=== PATIENT | female | born 1955 | race Caucasian/White ===

== ENCOUNTER 2021-10-07 03:05 | Observation (INO) | payer OTHER ==
--- OUTSIDE RECORDS SUMMARY | 2021-10-07 03:09 | XMS REPORT | Continuity of Care Document ---
:1955 Author Organization [facility] t Address [address] [place] [address] Care Team Providers Name Role Phone UMM MONSON Primary Care Physician Unavailable MOHIT SANDOVAL Attending Clinician Unavailable LYUBOV GIFFORD Attending Clinician Unavailable MOHIT SANDOVAL M.D. Attending Clinician Unavailable SYDNEY SNOW Attending Clinician Unavailable WILIAN BUENROSTRO M.D. Attending Clinician Unavailable Wilian Buenrostro Sr Attending Clinician CALLY SWE[address] RD Attending Clinician Unavailable Payers Payer Name Policy Type Policy Number Effective Date Expiration Date Yesy scott [employer] [id number] 2000 00:00:00 [employer] CHOICE POS [id number] 2018 00:00:00 II Problems Condition Condition Condition Status Onset Resolution Last Treating Co mments Source Name Details Category Date Date Treatment Clinician Date MORBID MORBID Diagnosis Active 2018-07-02 Me moria OBESITY OBESITY 2-14 06:35:00 l Active 00:00: Car 03/25/[address] [place] [address] GERD GERD Diagnosis Active 2017-022018-01-08 Mem oria Active 03-06 07:32:00 l 01/04/2018 00:00: Milton damon [address] K21.9 K21.9 Diagnosis Active 2017-022018-01-04 Mem oria Active 0 15:27:00 l 11/26/2017 00:00: Milton damon [address] Localized Localized Problem Active [facility] primary primary Physici carpometac carpometac an s arpal arpal osteoarthr osteoarthr itis itis Trochanter Trochanter Problem Active U T ic ic Physici bursitis bursitis ans Headache Headache Problem Active [facility] Physici ans Vitamin D Vitamin D Problem Active [facility] deficiency deficiency Ph ysici ans Pre-operat Pre-operat Problem Active U [place] Phys[facility] cardiovasc cardiovasc an s ular ular examinatio examinatio n, n, valvular valvular heart heart disease disease massage operator longterm Problem Active [facility] current current Physici use of use of ans non-steroi non-steroi patricia patricia anti-infla anti-infla mmatories mmatories (NSAID) (NSAID) Muscle Muscle Problem Active [facility] spasm spasm Physici ans Neck pain Neck pain Problem Active [facility] Physici ans Drug Drug Problem Active [facility] therapy therapy Physici ans Generalize Generalize Problem Active U T d d Physici 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 Obstructiv Obstructiv Problem Active U T e sleep e sleep Physici apnea apnea ans syndrome syndrome Asthma in Asthma in Problem Active UT adult adult Physici without without ans complicati complicati on, on, unspecifie unspecifie d asthma d asthma severity, severity, unspecifie unspecifie d whether d whether persistent persistent Body mass Body mass Problem 2018-07-28 Memoria index index 14:31:41 l (BMI) (BMI) [place] 37.0-37.9, 37.0-37.9, adult adult 07/28/2018 [facility] Essential Essential Problem 2018-07-28 Memoria (primary) (primary) 14:31:41 l hypertensi hypertensi [facility] on on 07/28/2018 [facility] Unspecifie Unspecifi Problem 2018-07-28 Memoria d atrial ed atrial 14:31:41 l [facility] Hypothyroi Problem 2018-07-28 M emoria dism, Hypothyroi 14:31:41 l unspecifie dism, Milton n d unspecifie d 07/28/2018 [facility] Gastro-eso Gastro-es Problem 2018-07-28 Memoria phageal ophageal 14:31:41 l reflux reflux Car disease disease without without esophagiti esophagiti s s 07/28/2018 [facility] Morbid Morbid Problem 2018-07-28 Andre dilcia (severe) (severe) 14:31:41 l obesity obesity [place] due to due to excess excess calories calories 07/28/2018 [facility] Osteoarthr Osteoarthr Problem Active U T itis, itis, Physici localized, localized, an s ankle or ankle or foot foot History of Past Illness Condition Condition Condition Status Onset Resolution Last Treating Co mments Source Name Details Category Date Date Treatment Clinician Date Unspecifie Unspecifi Problem 2017-022018-07-28 2018-07-28 Memoria d chronic ed chronic 2-06 14:31:41 14:31:41 l gastritis gastritis 04:08: Herm matt without without 47 bleeding bleeding 01/14/2018 07/28/2018 [facility] Allergies, Adverse Reactions, Alerts Allergy Allergy Status Severity Reaction(s) Onset Inactive Treating Comm ents Source Name Type Date Date Clinician pentazoc DA [facility] [place] clarithr DA Active [facility] omycin [facility] Talwin Talwin Active Memoria Compound Compound l [place] Biaxin Biaxin Active Memoria l Car NO KNOWN Drug Active [facility] ALLERGIE Class ity of [facility] Biaxin Allergy Active UT TABS to drug Physici (finding ans ) Talwin Allergy Active UT SOLN to drug Physici (finding ans ) Social History Smoking Status Start Date Stop Date Source Social History [facility] Medications Ordered Filled Start Stop Current Ordering Indication Dosage Frequency Signature Comments Components Source Medication Medication Date Date Medication? Clinician (SIG) Name Name Lisinopril- Lisinopril- Yes M.A. 1 QD TAKE 1 UT hydroCHLORO hydroCHLORO 3-16 TABLET Physici thiazide thiazide 00:00: DAILY. ans 20-25 MG 20-25 MG 00 Oral Tablet Oral Tablet Meloxicam Meloxicam 2011-02 Yes MOHIT QD TAKE 1 UT 15 MG Oral 15 MG Oral 2-21 SANDOVAL TABLET BY Physici Tablet Tablet 00:00: M.D. MOUTH ans 00 EVERY DAY Levoxyl 112 Levoxyl 112 Yes M.A. U T MCG Oral MCG Oral Physici Tablet Tablet ans Singulair Singulair Yes M.A. TAKE UT 10 MG Oral 10 MG Oral TABLET P hysici Tablet Tablet BEDTIME ans ZyrTEC ZyrTEC Yes M.A. 1 TAKE 1 UT Allergy 10 Allergy 10 TABLET P hysici MG Oral MG Oral BEDTIME ans Tablet Tablet Heartburn Heartburn Yes M.A. 1 QD TAKE 1 UT Relief TABS Relief TABS TABLET Physici DAILY. ans predniSONE predniSONE Yes M.A. 1 QD TAKE 1 U T 5 MG Oral 5 MG Oral TABLET Phy sici Tablet Tablet DAILY. ans Nucala 100 Nucala 100 Yes M.A. INJECT U T MG MG MONTHLY Physici Subcutaneou Subcutaneou a ns s Solution s Solution Reconstitut Reconstitut ed ed Qvar AERS Qvar AERS Yes M.A. [facility] Physici ans Advair Advair Yes M.A. UT Diskus MISC Diskus MISC P hysici ans Omeprazole Omeprazole Yes M.A. UT 20 MG Oral 20 MG Oral Phy sici Capsule Capsule ans Delayed Delayed Release Release Vital Signs Vital Name Observation Time Observation Value Comments Source Systolic blood 2020-01-13 11:45:00 116 mm[Hg] Location: [facility] P hysicians pressure Position: Sitting Diastolic blood 2020-01-13 11:45:00 76 mm[Hg] Location: [facility] Physicians pressure Position: Sitting Weight 2020-01-13 11:45:00 214.125 [lb_av] [facility] Ph ysicians Body mass index 2020-01-13 11:45:00 37.93 kg/m2 [facility] Ph ysicians (BMI) [Ratio] Body temperature 2020-01-13 11:45:00 96.9 [degF] [facility] P hysicians Heart Rate 2020-01-13 11:45:00 80 /min [facility] Physi cians Procedures Procedure Date / Time Performed Performing Clinician Sourc e Cholecystectomy [facility] Hysterectomy [facility] Operation [facility] Tubal ligation [facility] Encounters Start End Encounter Admission Attending Care Care Encounter Source Date/Time Date/Time Type Type Clinicians Facility Department ID 2021-07-12 Outpatient LORI [facility] [id number] [place] 12:46:15 [facility] [id number] [place] [address] 2021-01-09 Outpatient LORI [facility] [id number] [place] 14:47:50 Critical access hospital 2020-06-16 Outpatient LORI [facility] [id number] [place] 04:02:30 Critical access hospital 2020-06-18 2020-06-18 Outpatient Genia GIFFORD [facility] [id number] Univers 13:50:00 11:23:50 LYUBOV [facility] 2020-06-16 2020-06-16 Outpatient [facility] [id number] Univers 13:55:00 13:55:00 [facility] 2020-05-26 2020-05-26 Outpatient Genia GIFFORD [facility] [id number] Univers 14:00:00 14:00:00 LYUBOV [facility] 2020-05-06 2020-05-06 Outpatient [facility] [id number] Univers 09:00:00 09:00:00 [facility] 2020-01-13 2020-01-13 AppointDESTINEE Pablo [facility]TP [id number] [place] 11:30:00 11:30:00 t; MOHIT SANDOVAL P hysici COURTNEY, M.D. ans M.D. 2019-12-20 2019-12-20 Outpatient Genia SNOW [facility] [id number] Univers 10:00:00 10:00:00 SYDNEY [facility] 2018-10-29 2018-10-29 AppointDESTINEE Pablo UTP [id number] [place] 10:30:00 10:30:00 t; MOHIT SANDOVAL P hysici COURTNEY, M.D. ans M.D. 2018-03-31 2018-03-31 Outpatient [facility] LILO [id number] [facility] 11:30:00 11:30:00 2018-03-31 2018-03-31 Appointmen DESTINEE BUENROSTRO UTP [id number] [place] 10:30:00 10:30:00 t; WILIAN BUENROSTRO M.D. Physici BRAD, M.D. ans 2018-03-03 2018-03-03 Appointmen DESTINEE BUENROSTRO UTP [id number] [place] 11:30:00 11:30:00 t; WILIAN BUENROSTRO M.D. Physici BRAD, M.D. ans 2018-01-27 2018-01-27 Appointmen BUENROSTRO, DESTINEE UTP [id number] [place] 10:30:00 10:30:00 t; WILIAN BUENROSTRO M.D. Physici BRAD, M.D. ans 2018-01-08 2018-01-08 [id number] Memoria 13:22:00 19:59:00 Outpatient [facility] 2018-01-08 2018-01-08 [facility] [id number] 07:22:00 13:59:00 Wilian Billings 2018-01-08 2018-01-08 Appointmen PORTER, UTP UTP [id number] [place] 09:45:00 09:45:00 t; WILIAN BUENROSTRO M.D. Physici BRAD, M.D. ans 2017-12-30 2017-12-30 Appointmen PORTER, DESTINEE UTP [id number] [place] 11:15:00 11:15:00 t; WILIAN BUENROSTRO M.D. Physici BRAD, M.D. ans 2017-12-04 2017-12-04 [facility]ly [facility] [id number] Memoria 13:00:00 13:00:00 Outpatient [facility] 2017-12-04 2017-12-04 [facility] [id number] 08:00:00 08:00:00 Wilian Manuelito 2017-11-25 2017-11-[facility] UTP [id number] [place] 10:30:00 10:30:00 t; CALLY Damon, Kelli [address]TRAN RD ans CALLY [address] 2017-11-18 2017-11-18 Appointmen PORTER, DESTINEE UTP [id number] [place] 09:30:00 09:30:00 t; WILIAN BUENROSTRO M.D. Physici BRAD, M.D. ans 2017-07-16 2017-07-16 Appointmen LORI, DESTINEE UTP [id number] [place] 14:30:00 14:30:00 t; MOHIT SANDOVAL P hysici COURTNEY, M.D. ans M.D. 2016-01-31 2016-01-31 Appointmen DESITNEE SANDOVAL [facility] [id number] [place] 12:00:00 12:00:00 t; MOHIT SANDOVAL P hysici COURTNEY, M.D. ans M.D. Results Test Description Test Time Test Comments Results Result Comments Source [QL] CMP W/EGFR 2020-01-13 00:00:00 Test Item Value Reference Range Interpretation Comme nts GLUCOSE; Normal (test code 92 mg/dl 65-99 N F asting reference interval = 1547-9) UREA NITROGEN (BUN) (test 18 mg/dl 7-25 N code = UREA NITROGEN (BUN)) CREATININE (test code = 0.67 mg/dl 0.50-0.99 N For patients >49 years of age, CREATININE) the reference l imitfor Creatinine is a pproximately 13% higher for peopleidentifie d as -Jina n. eGFR NON-AFR. FILIPINO 93 {ML/MIN/1.7} > OR = 60 N (test code = eGFR NON-AFR. FILIPINO) eGFR 108 {ML/MIN/1.7} > OR = 60 N (test code = eGFR ) BUN/CREATININE RATIO (test NOT APPLICABLE 07-31 code = BUN/CREATININE RATIO) SODIUM (test code = 143 mmol/L 135-146 N SODIUM) POTASSIUM (test code = 4.0 mmol/L 3.5-5.3 N POTASSIUM) CHLORIDE (test code = 106 mmol/L 98-110 N CHLORIDE) CARBON DIOXIDE (test code 30 mmol/L 20-32 N = CARBON DIOXIDE) CALCIUM (test code = 9.6 mg/dl 8.6-10.4 N CALCIUM) PROTEIN, TOTAL (test code 6.6 g/dl 6.1-8.1 N = PROTEIN, TOTAL) ALBUMIN (test code = 4.0 g/dl 3.6-5.1 N ALBUMIN) GLOBULIN (test code = 2.6 {G/DL CALC} 1.9-3.7 N GLOBULIN) ALBUMIN/GLOBULIN RATIO 1.5 {CALC} 1.0-2.5 N (test code = ALBUMIN/GLOBULIN RATIO) BILIRUBIN, TOTAL; Normal 0.5 mg/dl 0.2-1.2 N (test code = 14000-4) ALKALINE PHOSPHATASE (test 70 u/l 37-153 N code = ALKALINE PHOSPHATASE) AST; Normal (test code = 18 u/l 10-35 N 1916-6) ALT; Above High Threshold 33 u/l 6-29 (test code = 1742-6) [place] [facility][QL] CBC (INCLUDES DIFF/PLT)2020-01-13 00:00:00 Test Item Value Reference Range Interpretation Comments WHITE BLOOD CELL COUNT 9.3 {Thousand/u} 3.8-10.8 N (test code = WHITE BLOOD CELL COUNT) RED BLOOD CELL COUNT (test 4.46 {Million/uL} 3.80-5.10 N code = RED BLOOD CELL COUNT) HEMOGLOBIN; Normal (test 11.9 g/dl 11.7-15.5 N code = 57947-7) HEMATOCRIT; Normal (test 36.8 % 35.0-45.0 N code = 4544-3) MCV; Normal (test code = 82.5 fL 80.0-100.0 N 787-2) MCHC; Normal (test code = 32.3 g/dl 32.0-36.0 N 88420-8) RDW; Normal (test code = 13.7 % 11.0-15.0 N 788-0) PLATELET COUNT; Normal 399 {Thousand/u} 140-400 N (test code = 777-3) MPV; Normal (test code = 9.7 fL 7.5-12.5 N 79024-5) ABSOLUTE NEUTROPHILS (test 7310 {cells/uL} 2779-3181 N code = ABSOLUTE NEUTROPHILS) ABSOLUTE LYMPHOCYTES (test 1023 {cells/uL} 850-3900 N code = ABSOLUTE LYMPHOCYTES) ABSOLUTE MONOCYTES (test 809 {cells/uL} 200-950 N code = ABSOLUTE MONOCYTES) ABSOLUTE EOSINOPHILS (test 121 {cells/uL} 15-500 N code = ABSOLUTE EOSINOPHILS) ABSOLUTE BASOPHILS (test 37 {cells/uL} 0-200 N code = ABSOLUTE BASOPHILS) NEUTROPHILS (test code = 78.6 % N NEUTROPHILS) LYMPHOCYTES (test code = 11.0 % N LYMPHOCYTES) MONOCYTES; Normal (test 8.7 % N code = 72671-6) EOSINOPHILS; Normal (test 1.3 % N code = 16740-4) BASOPHILS; Normal (test 0.4 % N code = 42153-2) [facility][QL] T4, [id number] 00:00:00 Test Item Value Reference Range Interpretation Comments T4, FREE (test code = T4, FREE) 1.2 ng/dl 0.8-1.8 N [place] [facility][QL] TSH, 3RD [id number] 00:00:00 Test Item Value Reference Range Interpretation Comments TSH; Normal (test code = 2.16 {MIU/L} 0.40-4.50 N 31776-8) [facility][QLH] CBC (INCLUDES DIFF/PLT)2017-11-18 10:48:01 Test Item Value Reference Range Interpretation Comments WBC (test code = 6690-2) 8.2 {K/CMM} 3.7-10.4 RBC (test code = 789-8) 4.87 {M/CMM} 4.20-5.40 Hgb (test code = 718-7) 12.7 g/dl 12.0-16.0 Hct (test code = 64447-9) 38.2 % 36.0-48.0 MCV; Below Low Threshold (test 78.4 fL 80.0-98.0 code = 787-2) MCH; Below Low Threshold (test 26.1 pg 27.0-31.0 code = 785-6) MCHC (test code = 786-4) 33.3 g/dl 32.0-36.0 RDW (test code = 788-0) 14.2 % 11.5-14.5 Platelet (test code = 04906-5) 399 {K/CMM} 133-450 Mean Platelet Volume (test code 8.1 fL 7.4-10.4 = 12226-6) [facility][QL] [id number] 10:48:01 Test Item Value Reference Range Interpretation Comments Segmented Neutrophils; Above High 83.6 % 45.0-75.0 Threshold (test code = 56687-9) Monocytes (test code = 29514-3) 5.6 % 2.0-12.0 Lymphocytes; Below Low Threshold 9.0 % 20.0-40.0 (test code = 01070-1) Eosinophils (test code = 91847-9) 1.1 % 0.0-4.0 Basophils (test code = 706-2) 0.7 % 0.0-1.0 Segs-Bands # (test code = 6.9 {K/CMM} 1.5-8.1 42292-7) Lymphocytes #; Below Low 0.7 {K/CMM} 1.0-5.5 Threshold (test code = 29199-3) Monocytes # (test code = 19960-7) 0.5 {K/CMM} 0.0-0.8 Eosinophils # (test code = 0.1 {K/CMM} 0.0-0.5 29439-8) Basophils # (test code = 20813-1) 0.1 {K/CMM} 0.0-0.2 Microcyte (test code = Microcyte) 1+ None Seen A [facility][QL] HEMOGLOBIN [id number] 10:48:01 Test Item Value Reference Range Interpretation Comments Hemoglobin A1c (test code = 4548-4) 5.5 % <=5.6 [facility][QL] PTH, INTACT (WITHOUT CALCIUM)2017-11-18 10:48:01 Test Item Value Reference Range Interpretation Comments Parathyroid Hormone Intact; Above 80.3 pg/ml 18.4-80.1 High Threshold (test code = 2731-8) [facility][QL] CMP [id number] 10:48:01 Test Item Value Reference Range Interpretation Comments eGFR (test code = 79 The eGFR i s calculated 02593-3) {ML/MIN/1.7} using the CKD-E PI formula. In mos t young, healthyindividu als the eGFR will be >9 0 mL/min/1.73m2. The eGFR declines with a ge. AneGFR of 60-89 may be normal in some population s, particularly th e elderly, forwhom the CKD -EPI formula has not been extensively jessica idated. Use of the eGFR isnot recommended in the following populations:Ind ividuals with unstable c reatinine concentrations, including patient s and those with seri ous co-morbid conditions.Fang ents with extremes in mus leo mass or diet.The renee a above are obtained fr om the National Kidney Disease Education Progr am(NKDEP) which cherise clement recommends that when the eGFR is used in patientswith ex tremes of body mass index for purposes of srinivas g dosing, the eGFR should be multiplied by t he estimated BMI. Sodium Level 140 {mEq/l} 135-145 (test code = 2951-2) Potassium Level 3.5 {mEq/l} 3.5-5.1 (test code = 2823-3) Chloride Level 104 {mEq/l} 95-109 (test code = 2074-0) Carbon Dioxide 28 {mEq/l} 24-32 (test code = 2027-9) AGAP (test code = 11.5 {mEq/l} 10.0-20.0 03333-6) Glucose Lvl (test 93 mg/dl 70-99 Adult refe rence range code = 2345-7) values reflec t the clinical guidel inesof the [place] Diabet es Association. Creatinine Lvl 0.80 mg/dl 0.50-1.40 (test code = 2160-0) Blood Urea 20 mg/dl 7-22 Nitrogen (test code = 3094-0) BUN/Creatinine 25 6-25 Ratio (test code = 3097-3) Total Protein 7.1 g/dl 6.4-8.4 (test code = 2885-2) Albumin Lvl (test 3.8 g/dl 3.5-5.0 code = 1751-7) Globulin (test 3.3 g/dl 2.7-4.2 code = 95325-5) A/G Ratio (test 1.2 0.7-1.6 code = 1759-0) Calcium Level 9.1 mg/dl 8.5-10.5 Total (test code = 00845-2) ALT (test code = 51 u/l 0-65 1743-4) AST (test code = 22 u/l 0-37 32911-6) Bili Total (test 0.4 mg/dl 0.2-1.3 code = 1974-) Alk Phos (test 91 u/l 39-136 code = 1783-0) [facility]] LIPID [id number] 10:48:01 Test Item Value Reference Range Interpretation Comments LDL (test code = 88867-9) 74 mg/dl <=99 VLDL (test code = VLDL) 26 Chol (test code = 2092-3) 152 mg/dl <=199 Trig (test code = 2571-8) 129 mg/dl <=149 HDL Cholesterol; Below Low 52 mg/dl >=61 Threshold (test code = 2084-9) CHD Risk; Below Low Threshold (test 2.92 3.90-5.80 code = 36660-7) [facility][QL] FOLATE, [id number] 10:48:01 Test Item Value Reference Range Interpretation Comments Folate Level (test code = 2284-8) 29.4 ng/ml >=3.0 [facility][QLH] IRON AND TOTAL IRON BINDING [id number] 10:48:01 Test Item Value Reference Range Interpretation Comments Iron (test code = 2498-4) 45 ug/dL 30-160 % Satur Fe (test code = 2502-3) 13 % 12-57 TIBC (test code = 2500-7) 336 ug/dL 228-428 UIBC (test code = UIBC) 291 ug/dL 110-370 [facility][QL] VITAMIN [id number] 10:48:01 Test Item Value Reference Range Interpretation Comments Vitamin B12 Level (test code = 534 pg/ml 254-1320 2132-9) [facility][QL] TSH, 3RD GENERATION W/REFLEX TO [id number] 10:48:01 Test Item Value Reference Range Interpretation Comments TSH (test code = 17363-5) 0.903 {uIU/ml} 0.360-3.740 [facility]] VITAMIN D, 25-HYDROXY, [id number] 10:48:01 Test Item Value Reference Range Interpretation Comments Vitamin D, 25-OH, 19.7 ng/ml 30.0-100.0 Reference range is based Total (test code on recommen dations in the = Vitamin D, EndocrineSociet y Clinical 25-OH, Total) Practice Guide line (J Clin Endocrinol Cnoes0362;96:19 11-1930) [facility][H] Vitamin E [id number] 10:48:01 Test Item Value Reference Range Interpretation Comments Alpha-Tocoph 11.3 mg/L 9.0-29.0 kim (test code = Alpha-Tocoph kim) Gamma-Tocoph 1.7 mg/L 0.5-4.9 Reference inter vals for alpha kim (test and gamma-tocop heroldetermined code = from National H ealth and Gamma-Tocoph Nutrition Exami nationSurvey, kim) . Bernadette viduals with alpha-tocophero l levelsless than 5.0 mg/L are co nsidered vitamin E deficient.Thi s test was developed and i ts performance characteristics determined by [facility]. It has not been cleared orapproved by t Food and Drug Administration. Performed At: [facility] [id number] charity Garcia MD Ph:[phone] [place] [facility][H] Vit [id number] 10:48:01 Test Item Value Reference Range Interpretation Comments Vitamin A 38.4 ug/dL 36.4-108.0 Reference inter vals for vitamin Level (test A determined fr om code = NationalHealth and Nutrition Vitamin A Examination [place], Level) .Indiv iduals with vitamin A less than 20 ug/dL areconsidered v itamin A deficient and t hose with serumconcentrat ions less than 10 ug/dL are co nsidered severelydeficie nt.This test was developed and i ts performance characteristics determined by [facility]. It has not been cleared orappro luiz by the Food and Drug Administration. Performed At: [facility] [id number] charity Garcia MD Ph:[phone] [facility]] VITAMIN B1, WHOLE [id number] 10:48:01 Test Item Value Reference Range Interpretation Comments Vitamin B1 114.9 66.5-200.0 This test was d eveloped and its Level (test nmol/L performance code = characteristics determined by Vitamin B1 [facility]. It has not been Level) cleared orappro luiz by the Food and Drug Administration. Performed At: [facility] [id number] Garcia MD Ph:[phone] [facility]
[2021-10-07] MEDS ORDERED: ASPIRIN 81 MG CHEWABLE TABLET ONE (03:44)
[2021-10-07] MEDS ORDERED: ENOXAPARIN 100 MG/ML SYR SQ ONE (03:44)
[2021-10-07] MEDS ORDERED: METOPROLOL TAR 25 MG TAB ONE (03:44)
[2021-10-07] MEDS ORDERED: METOPROLOL TARTRATE 5 MG/5 ML INJ IV ONE (03:45)
[2021-10-07 03:50] LABS: Absolute Lymphocytes (CBC) 2.4 K/uL (0.7-4.9); Hematocrit 39.2 % (36.0-45.0); MCV 79.5 fL (80-100); MPV 7.3 fL (7.6-11.3); RBC Red Blood Cell Count 4.93 M/uL (3.86-4.86)
[2021-10-07] MEDS ORDERED: NA CHLORIDE 0.9% 500 ML ONE ×2 (04:07→07:47)
[2021-10-07] MEDS ORDERED: ONDANSETRON 4 MG/2 ML VIAL ONE (04:12)
[2021-10-07 04:13] LABS: Potassium 3.1 mmol/L (3.5-5.1); Troponin High Sensitivity 7.3 pg/mL (<58.9)
--- NOTE | 2021-10-07 05:14 | ER ---
Nurse's Notes [facility] Name: Isabela Parra Age: 66 yrs Sex: Female : 1955 Arrival Date: 10/07/2021 Time: 03:09 Bed 19 Private MD: Diagnosis: Unspecified atrial fibrillation;Persistent atrial fibrillation Presentation: 10/07 03:28 Chief complaint: Patient states: she thinks she is in afib, she has been feeling bb fatigued for the last couple of days and today she wasn't feeling "right" went to bed at 2130 woke up at 0130 and started monitoring her heart rate which was erratic she has hx of afib but has not had any symptoms in a while. Coronavirus screen: At this time, the client does not indicate any symptoms associated with coronavirus-19. Ebola Screen: No symptoms or risks identified at this time. Initial Sepsis Screen: Does the patient meet any 2 criteria? No. Patient's initial sepsis screen is negative. Does the patient have a suspected source of infection? No. Patient's initial sepsis screen is negative. Risk Assessment: Do you want to hurt yourself or someone else? Patient reports no desire to harm self or others. Onset of symptoms was October 07, 2021. 03:28 Method Of Arrival: Ambulatory 03:28 Acuity: AMBER 2 bb Historical: - Allergies: 03:30 Talwin; bb 03:30 byaxin; bb - Immunization history:: Client reports receiving the 2nd dose of the Covid vaccine, Moderna. - Social history:: Smoking status: Patient denies any tobacco usage or history of. Screenin:29 Abuse screen: Denies threats or abuse. Nutritional screening: No deficits noted. ll3 Tuberculosis screening: No symptoms or risk factors identified. Fall Risk No fall in past 12 months (0 pts). No secondary diagnosis (0 pts). IV access (20 points). Ambulatory Aid- None/Bed Rest/Nurse Assist (0 pts). Gait- Normal/Bed Rest/Wheelchair (0 pts) Mental Status- Oriented to own ability (0 pts). Total Paul Fall Scale indicates No Risk (0-24 pts). Assessment: 03:30 General: Appears uncomfortable, Behavior is calm, cooperative. Pain: Denies pain. Pain: ll3 Pain does not radiate. Pain began 1 am, states feels like indigestion. Neuro: Level of Consciousness is awake, alert, obeys commands, Oriented to person, place, time, situation. Cardiovascular: Reports nausea, vomiting, Patient's skin is warm and dry. Rhythm is atrial fibrillation with rapid ventricular response. Respiratory: Respiratory effort is even, unlabored, Respiratory pattern is regular, symmetrical. GI: Reports indigestion, nausea. Derm: Skin is pink, warm \\T\\ dry. 04:25 Reassessment: Patient and/or family updated on plan of care and expected duration. Pain ll3 level reassessed. Patient is alert, oriented x 3, equal unlabored respirations, skin warm/dry/pink. States nausea has improved. 05:08 Reassessment: No changes from previously documented assessment. Patient and/or family ll3 updated on plan of care and expected duration. Pain level reassessed. 05:35 Reassessment: Dr. Horner at bedside talking with pt. ll3 06:05 Reassessment: Patient and/or family updated on plan of care and expected duration. Pain ll3 level reassessed. Patient is alert, oriented x 3, equal unlabored respirations, skin warm/dry/pink. Cardiovascular: Rhythm is sinus rhythm. 07:30 Reassessment: Patient and/or family updated on plan of care and expected duration. Pain ap3 level reassessed. Patient is alert, oriented x 3, equal unlabored respirations, skin warm/dry/pink. Patient states symptoms have improved. 07:42 General: provider notified of patients hypotensive blood pressure. new orders received ap3 for NS bolus. . 14:54 Reassessment: nurse attempted to call report. Cynthia informed ER nurse that she hadn't ap3 assigned the bed yet and the receiving nurse would call me. Vital Signs: 03:28 BP 133 / 113; Pulse 157; Resp 18 S; Temp 98.1(O); Pulse Ox 97% on R/A; Weight 88.45 kg bb (R); Height 5 ft. 4 in. (162.56 cm) (R); Pain 0/10; 04:00 BP 117 / 72; Pulse 128; Resp 20; Pulse Ox 94% ; ll3 04:15 BP 126 / 63; Pulse 122; Resp 15; Pulse Ox 95% on R/A; ll3 04:15 BP 126 / 63; Pulse 128; Resp 19; Pulse Ox 96% on R/A; ll3 05:07 BP 111 / 76; Pulse 127; Resp 21; Pulse Ox 96% on R/A; ll3 06:06 BP 122 / 71; Pulse 79; Resp 17; Pulse Ox 98% on R/A; mh5 07:30 BP 92 / 54; Pulse 69; Resp 16; Pulse Ox 100% ; ap3 03:28 Body Mass Index 33.47 (88.45 kg, 162.56 cm) bb ED Course: 03:09 Patient arrived in ED. ja2 03:21 Curt Horner MD is Attending Physician. kdr 03:30 Triage completed. bb 03:30 Arm band placed on Patient placed in an exam room, on a stretcher, on congressional assistant, bb on pulse oximetry. EKG completed in triage. Results shown to MD. 03:47 Initial lab(s) drawn, by la, sent to lab. Inserted saline lock: 20 gauge in left mh5 antecubital area, using aseptic technique. Blood collected. 03:47 Basic Metabolic Panel Sent. mh5 03:47 CBC with Diff Sent. mh5 03:47 Troponin HS Sent. mh5 03:57 XRAY Chest (1 view) In Process Unspecified. EDMS 04:30 Patient has correct armband on for positive identification. Placed in gown. Bed in low ll3 position. Call light in reach. Side rails up X 1. Client placed on continuous cardiac and pulse oximetry monitoring. NIBP monitoring applied. 04:30 Patient maintains SpO2 saturation greater than 95% on room air. ll3 05:13 Jaspal Parmar MD is Hospitalizing Provider. kdr 05:41 SARS RAPID Sent. mh5 05:41 COVID RAPID. mh5 06:00 Inserted saline lock: 22 gauge in right hand, using aseptic technique. ll3 06:03 Assist provider with cardioversion (synchronized) with pads, with defibrillator, for ll3 treatment of A-Fib with RVR with 120. Set up for procedure. Performed by Curt Horner MD Monitored with congressional assistant, pulse ox, Defibrillator . Post procedure rhythm is sinus rhythm. Patient tolerated well. 06:16 Abdifatah Garcia is Hospitalizing Provider. kdr 09:18 Patient admitted, IV remains in place. ap3 Administered Medications: 03:40 Drug: Lopressor (metoprolol TARTRATE)) 25 mg Route: PO; ll3 04:00 Follow up: BP 117 / 72; Pulse 128 bpm; Resp 20 bpm; Pulse Ox 94% ; Response: No adverse ll3 reaction; Blood pressure is lowered 03:40 Drug: Lovenox (enoxaparin) 1 mg/kg Route: Sub-Q; Site: abdomen; ll3 04:28 Follow up: Response: No adverse reaction ll3 03:40 Drug: Aspirin Chewable Tablet 324 mg Route: PO; ll3 04:28 Follow up: Response: No adverse reaction ll3 03:45 Drug: Lopressor (metoprolol) 5 mg Route: IVP; Site: left antecubital; ll3 03:52 Drug: Lopressor (metoprolol) 5 mg Route: IVP; Site: left antecubital; ll3 04:02 Drug: Lopressor (metoprolol) 5 mg Route: IVP; Site: left antecubital; ll3 04:15 Follow up: BP 126 / 63; Pulse 122 bpm; Resp 15 bpm; Pulse Ox 95% RA; Response: No ll3 adverse reaction 04:03 Drug: NS 0.9% 500 ml Route: IV; Rate: bolus; Site: left antecubital; ll3 06:26 Follow up: Response: No adverse reaction; IV Status: Completed infusion; IV Intake: ll3 500ml 04:08 Drug: Zofran (Ondansetron) 4 mg Route: IVP; Site: left antecubital; ll3 04:28 Follow up: Response: No adverse reaction; Nausea is decreased ll3 05:36 Not Given (Does not meet parameterss): Lopressor (metoprolol TARTRATE)) 25 mg PO once ll3 05:58 Drug: fentaNYL (PF) 25 mcg Route: IVP; Site: left antecubital; ll3 05:58 Drug: Midazolam 2 mg Route: IVP; Site: left antecubital; ll3 06:00 Drug: fentaNYL (PF) 12.5 mcg Route: IVP; Site: left antecubital; ll3 06:00 Drug: NS 0.9% 1000 ml Route: IV; Rate: 125 ml/hr; Site: right hand; ll3 07:42 Follow up: IV Status: Completed infusion ap3 06:01 Drug: Midazolam 1 mg Route: IVP; Site: left antecubital; ll3 06:02 Drug: fentaNYL (PF) 12.5 mcg Route: IVP; Site: left antecubital; ll3 06:09 CANCELLED (Duplicate Order): fentaNYL (PF) 25 mcg IVP once ll3 06:15 Not Given (Duplicate Order): NS 0.45 % 1000 ml IV at 125 ml/hr continuous ll3 07:41 Drug: NS 0.9% 500 ml Route: IV; Rate: bolus; Site: left antecubital; ap3 Medication: 06:29 VIS not applicable for this client. ll3 Intake: 06:26 IV: 500ml; Total: 500ml. ll3 Outcome: 05:14 Decision to Hospitalize by Provider. kdr 09:18 Admitted to ER Hold. Please see [facility] for further documentation. ap3 09:18 Condition: good 09:18 Discharge instructions given to patient. 16:45 Patient left the ED. ap3 Signatures: Dispatcher [employer] EDMS Curt Horner MD MD kdr Ballard, Brenda, RN RN Segundo Espinoza [facility] Isi Wong RN RN ap3 Hellen Richter Lynsea, RN RN ll3 Corrections: (The following items were deleted from the chart) 06:14 06:11 Inserted saline lock: 22 gauge in right hand, using aseptic technique. concepcion 3
--- NOTE | 2021-10-07 05:14 | EDPHYS ---
Physician Documentation [facility] Name: Isabela aPrra Age: 66 yrs Sex: Female : 1955 Arrival Date: 10/07/2021 Time: 03:09 Bed 19 Private MD: ED Physician Curt Horner HPI: 10/07 06:20 This 66 yrs old Female presents to ER via Ambulatory with complaints of Other, Chest kdr Pain. 06:20 Patient thinks she may be in A. fib. She states that she has been feeling fatigued for kdr the last couple of days. She went to bed this evening around 9:30 PM and awoke at 1:30 AM and started to monitor her heart rate which she noted to be erratic. She has a history of atrial fibrillation but has not had any symptoms for a while. Number of years ago she may have been converted chemically but it took a few days.. Onset: The symptoms/episode began/occurred at an unknown time. Severity of symptoms: At their worst the symptoms were mild in the emergency department the symptoms are unchanged. The patient has experienced similar episodes in the past, a few times. The patient has not recently seen a physician. Historical: - Allergies: 03:30 Talrene; bb 03:30 bymina; raheem - Immunization history:: Client reports receiving the 2nd dose of the Covid vaccine, Moderna. - Social history:: Smoking status: Patient denies any tobacco usage or history of. ROS: 06:20 Constitutional: Negative for fever, chills, and weight loss, Eyes: Negative for injury, kdr pain, redness, and discharge, ENT: Negative for injury, pain, and discharge, Neck: Negative for injury, pain, and swelling, Respiratory: Negative for shortness of breath, cough, wheezing, and pleuritic chest pain, Abdomen/GI: Negative for abdominal pain, nausea, vomiting, diarrhea, and constipation, Back: Negative for injury and pain, : Negative for injury, bleeding, discharge, and swelling, MS/Extremity: Negative for injury and deformity, Skin: Negative for injury, rash, and discoloration, Neuro: Negative for headache, weakness, numbness, tingling, and seizure activity. Psych: Negative for depression, anxiety, suicide ideation, homicidal ideation, and hallucinations, Allergy/Immunology: Negative for hives, rash, and allergies, Endocrine: Negative for neck swelling, polydipsia, polyuria, polyphagia, and marked weight changes, Hematologic/Lymphatic: Negative for swollen nodes, abnormal bleeding, and unusual bruising. 06:20 Cardiovascular: Positive for palpitations. Exam: 06:20 Constitutional: This is a well developed, well nourished patient who is awake, alert, kdr and in no acute distress. Head/Face: Normocephalic, atraumatic. Eyes: Pupils equal round and reactive to light, extra-ocular motions intact. Lids and lashes normal. Conjunctiva and sclera are non-icteric and not injected. Cornea within normal limits. Periorbital areas with no swelling, redness, or edema. Neck: Trachea midline, no thyromegaly or masses palpated, and no cervical lymphadenopathy. Supple, full range of motion without nuchal rigidity, or vertebral point tenderness. No Meningismus. Chest/axilla: Normal chest wall appearance and motion. Nontender with no deformity. No lesions are appreciated. Respiratory: Lungs have equal breath sounds bilaterally, clear to auscultation and percussion. No rales, rhonchi or wheezes noted. No increased work of breathing, no retractions or nasal flaring. Abdomen/GI: Soft, non-tender, with normal bowel sounds. No distension or tympany. No guarding or rebound. No evidence of tenderness throughout. Back: No spinal tenderness. No costovertebral tenderness. Full range of motion. Skin: Warm, dry with normal turgor. Normal color with no rashes, no lesions, and no evidence of cellulitis. MS/ Extremity: Pulses equal, no cyanosis. Neurovascular intact. Full, normal range of motion. Neuro: Awake and alert, GCS 15, oriented to person, place, time, and situation. Cranial nerves II-XII grossly intact. Motor strength 5/5 in all extremities. Sensory grossly intact. Cerebellar exam normal. Normal gait. Psych: Awake, alert, with orientation to person, place and time. Behavior, mood, and affect are within normal limits. 06:20 Cardiovascular: Rate: tachycardic, Rhythm: irregularly irregular, Pulses: no pulse deficits are appreciated, Heart sounds: normal, Edema: is not appreciated, JVD: is not appreciated. Vital Signs: 03:28 BP 133 / 113; Pulse 157; Resp 18 S; Temp 98.1(O); Pulse Ox 97% on R/A; Weight 88.45 kg bb (R); Height 5 ft. 4 in. (162.56 cm) (R); Pain 0/10; 04:00 BP 117 / 72; Pulse 128; Resp 20; Pulse Ox 94% ; ll3 04:15 BP 126 / 63; Pulse 122; Resp 15; Pulse Ox 95% on R/A; ll3 04:15 BP 126 / 63; Pulse 128; Resp 19; Pulse Ox 96% on R/A; ll3 05:07 BP 111 / 76; Pulse 127; Resp 21; Pulse Ox 96% on R/A; ll3 06:06 BP 122 / 71; Pulse 79; Resp 17; Pulse Ox 98% on R/A; mh5 07:30 BP 92 / 54; Pulse 69; Resp 16; Pulse Ox 100% ; ap3 03:28 Body Mass Index 33.47 (88.45 kg, 162.56 cm) Procedures: 06:20 Cardioversion: (synchronized) using defib paddles, for treatment of A fib, with a rate kdr of 140 beats/min, with 120, Post procedure rhythm is sinus rhythm, the patient tolerated the procedure well, The patient was overall stable in the ED however her rate was not improving and with the interventions given (beta-blockers). Further her blood pressure was slowly decreasing. After the initial round of beta-blockers, her heart rate initially decreased but then began to increase again. As her heart rate was increasing, her blood pressure was decreasing. And was trending down towards 100 systolic. Based on the lack of response to the beta-blockers and the worsening vital signs, it was decided to electrically convert the patient. Patient and are informed of the intent to attempt electrical conversion. They agreed to the procedure. Patient was initially pretty sedated with Versed and fentanyl (see the nursing notes for dosing and timing). Once the patient was adequately sedated, she was shocked (synchronized) 1 time at 120 J. She had immediate conversion to a sinus rhythm in which she remained. Patient remained stable and her pressure increase and improved.. MDM: 05:14 Patient medically screened. kdr 06:20 Data reviewed: vital signs, nurses notes, lab test result(s), radiologic studies. kdr Counseling: I had a detailed discussion with the patient and/or guardian regarding: the historical points, exam findings, and any diagnostic results supporting the discharge/admit diagnosis, lab results, radiology results, the need for further work-up and treatment in the hospital. 10/07 03:23 Order name: Basic Metabolic Panel; Complete Time: 05:24 kdr 10/07 03:23 Order name: CBC with Diff; Complete Time: 05:24 kdr 10/07 03:23 Order name: Troponin HS; Complete Time: 05:24 kdr 10/07 05:24 Order name: SARS RAPID; Complete Time: 07:37 wm 10/07 10:41 Order name: Troponin High Sensitivity EDMS 10/07 14:20 Order name: Troponin High Sensitivity EDMS 10/07 03:23 Order name: XRAY Chest (1 view) kdr 10/07 03:23 Order name: EKG; Complete Time: 03:24 kdr 10/07 03:23 Order name: Cardiac monitoring; Complete Time: 03:26 kdr 10/07 03:23 Order name: EKG - Nurse/Tech; Complete Time: 03:26 kdr 10/07 03:23 Order name: IV Saline Lock; Complete Time: 03:46 kdr 10/07 03:23 Order name: Labs collected and sent; Complete Time: 03:46 kdr 10/07 03:23 Order name: O2 Per Protocol; Complete Time: 03:26 kdr 10/07 03:23 Order name: O2 Sat Monitoring; Complete Time: 03:26 kdr Administered Medications: 03:40 Drug: Lopressor (metoprolol TARTRATE)) 25 mg Route: PO; ll3 04:00 Follow up: BP 117 / 72; Pulse 128 bpm; Resp 20 bpm; Pulse Ox 94% ; Response: No adverse ll3 reaction; Blood pressure is lowered 03:40 Drug: Lovenox (enoxaparin) 1 mg/kg Route: Sub-Q; Site: abdomen; ll3 04:28 Follow up: Response: No adverse reaction ll3 03:40 Drug: Aspirin Chewable Tablet 324 mg Route: PO; ll3 04:28 Follow up: Response: No adverse reaction ll3 03:45 Drug: Lopressor (metoprolol) 5 mg Route: IVP; Site: left antecubital; ll3 03:52 Drug: Lopressor (metoprolol) 5 mg Route: IVP; Site: left antecubital; ll3 04:02 Drug: Lopressor (metoprolol) 5 mg Route: IVP; Site: left antecubital; ll3 04:15 Follow up: BP 126 / 63; Pulse 122 bpm; Resp 15 bpm; Pulse Ox 95% RA; Response: No ll3 adverse reaction 04:03 Drug: NS 0.9% 500 ml Route: IV; Rate: bolus; Site: left antecubital; ll3 06:26 Follow up: Response: No adverse reaction; IV Status: Completed infusion; IV Intake: ll3 500ml 04:08 Drug: Zofran (Ondansetron) 4 mg Route: IVP; Site: left antecubital; ll3 04:28 Follow up: Response: No adverse reaction; Nausea is decreased ll3 05:36 Not Given (Does not meet parameterss): Lopressor (metoprolol TARTRATE)) 25 mg PO once ll3 05:58 Drug: fentaNYL (PF) 25 mcg Route: IVP; Site: left antecubital; ll3 05:58 Drug: Midazolam 2 mg Route: IVP; Site: left antecubital; ll3 06:00 Drug: fentaNYL (PF) 12.5 mcg Route: IVP; Site: left antecubital; ll3 06:00 Drug: NS 0.9% 1000 ml Route: IV; Rate: 125 ml/hr; Site: right hand; ll3 07:42 Follow up: IV Status: Completed infusion ap3 06:01 Drug: Midazolam 1 mg Route: IVP; Site: left antecubital; ll3 06:02 Drug: fentaNYL (PF) 12.5 mcg Route: IVP; Site: left antecubital; ll3 06:09 CANCELLED (Duplicate Order): fentaNYL (PF) 25 mcg IVP once ll3 06:15 Not Given (Duplicate Order): NS 0.45 % 1000 ml IV at 125 ml/hr continuous ll3 07:41 Drug: NS 0.9% 500 ml Route: IV; Rate: bolus; Site: left antecubital; ap3 Disposition Summary: 10/07/21 05:14 Hospitalization Ordered Hospitalization Status: Observation kdr Condition: Fair kdr Problem: an acute exacerbation kdr Symptoms: have improved kdr Bed/Room Type: Standard kdr Provider: Abdifatah Garcia(10/07/21 06:16) kdr Location: [facility] ER HOLD(10/07/21 15:25) aa5 Room Assignment: (10/07/21 15:25) aa5 Diagnosis - Unspecified atrial fibrillation kdr - Persistent atrial fibrillation kdr Forms: - Medication Reconciliation Form kdr - SBAR form kdr Signatures: Dispatcher [employer] EDMS Orin De bd Frances Asher RN RN Curt Flood MD MD kdr Zoe Ramirez RN RN bb Jassi Stevens MD MD rn Calderon, Audri, RN RN aa5 Isi Wong RN RN ap3 Trang Lock RN RN ll3 Nicole Lang, ANDREWS PA sb3 Corrections: (The following items were deleted from the chart) 05:22 05:14 Telemetry/MedSurg (observation) kdr mw 05:22 05:14 kdr mw 06:09 06:07 fentaNYL (PF) 25 mcg IVP once ordered. ll3 ll3 06:16 05:14 Jaspal Parmar kdr kdr 14:50 05:22 [facility] ER HOLD mw bd 14:50 05:22 ERHOLD- mw bd 15:25 14:50 Telemetry/MedSurg (observation) bd aa5 15:25 14:50 429 bd aa5
[2021-10-07] MEDS ORDERED: MIDAZOLAM HCL 2 MG/2 ML INJ ONE (05:52)
[2021-10-07] MEDS ORDERED: FENTANYL CITR 100 MCG/2 ML ONE (05:53)
[2021-10-07] MEDS ORDERED: NA CHLORIDE 0.9% 1,000 ML ONE ×2 (05:53→09:39)
[2021-10-07 06:04] LABS: SARS-CoV-2 Antigen Rapid Res Negative (Negative)
[2021-10-07] MEDS ORDERED: ACETAMINOPHEN 500 MG TAB PO PRN (09:17)
[2021-10-07] MEDS ORDERED: NA CHLORIDE 0.9% 1,000 ML IV SCH (09:17)
[2021-10-07] MEDS ORDERED: ONDANSETRON 4 MG/2 ML VIAL IV PRN (09:17)
[2021-10-07 09:26] VITALS: BMI 33.5
[2021-10-07] MEDS ORDERED: HYDROCODONE/APAP 5/325 MG TAB PO PRN (09:32)
--- NOTE | 2021-10-07 09:34 | P.HP ---
Certification for Inpatient Patient admitted to: Observation With expected LOS: <2 Midnights Patient will require the following post-hospital care: None Practitioner: I am a practitioner with admitting privileges, knowledge of patient current condition, hospital course, and medical plan of care. Services: Services provided to patient in accordance with Admission requirements found in Title 42 Section 412.3 of the Code of Federal Regulations Patient History Date of Service: 10/07/21 Reason for admission: Nausea and vomiting. History of Present Illness: Patient is a 66-year-old female with a past medical history significant for obesity, paroxysmal atrial fibrillation who presents with complaint of nausea and vomiting. Patient reported that she woke up around 1:15 AM this morning. She reported that she was not feeling good. She had an episode of vomiting x1. Patient decided to check her pulse rate using a pulse oximeter because she felt she was in atrial fibrillation and patient noted that her heart rate was erratic. Patient reported associated signs and symptoms of palpitations and chest tightness. Patient denies any other signs and symptoms. Symptoms are aggravated or relieved by nothing. Patient decided to present to the hospital for medical evaluation. Allergies pentazocine [From Talwin] Allergy (Verified 10/07/21 09:17) Anaphylaxis - Past Medical/Surgical History Diabetic: No Past Medical History: Reviewed- Non-Contributory -: Paroxysmal A. fib -: Obesity Past Surgical History: Reviewed- Non-Contributory - Family History Family History: Reviewed- Non-Contributory - Social History Smoking Status: Never smoker CD- Drugs: No Caffeine use: Yes Place of Residence: Home Review of Systems General: Malaise Eyes: Unremarkable ENT: Unremarkable Respiratory: Other (Chest tightness.) Cardiovascular: Palpitations Gastrointestinal: Nausea, Vomiting Genitourinary: Unremarkable Musculoskeletal: Unremarkable Integumentary: Unremarkable Neurological: Unremarkable Physical Examination - Physical Exam General: Alert, Oriented x3, Cooperative HEENT: Atraumatic, Normocephalic, PERRLA Neck: Supple, 2+ carotid pulse no bruit, JVD not distended Respiratory: Clear to auscultation bilaterally, Normal air movement Cardiovascular: No edema, Normal pulses, Irregular heart rate/rhythm Capillary refill: <2 Seconds Gastrointestinal: Normal bowel sounds, Soft and benign Musculoskeletal: No clubbing, No swelling, No contractures Integumentary: No rashes, No breakdown, No significant lesion, No tenderness/swelling Neurological: Normal gait, Normal speech, Normal tone, Sensation intact Lymphatics: No axilla or inguinal lymphadenopathy - Studies Laboratory Data (last 24 hrs) 10/07/21 03:43: WBC 12.70 H, Hgb 13.0, Hct 39.2, Plt Count 448 H 10/07/21 03:43: Sodium 141, Potassium 3.1 L, BUN 25 H, Creatinine 0.78, Glucose 107 H Assessment and Plan - Plan --A. fib with RVR. Patient given metoprolol IV in the ER. Rate now controlled. Cardiology consulted. Telemetry to monitor for any significant arrhythmia. Echocardiogram pending. We will await further recommendation from acoustical logging engineer. --Leukocytosis. Likely reactive. Will reassess levels in a.m. --Hypokalemia. Replete as needed. --CKD 2. Baseline renal function is unknown. Will reassess levels in a.m. --Class I obesity. Likely secondary to excess calories intake. Patient counseled on weight reduction, diet and exercise therapy. --Nausea vomiting. Antiemetics on board. Continue supportive care --Hypotension. Blood pressure improving. We will continue to monitor BP levels. Continue supportive care. --DVT prophylaxis with Lovenox subQ. Plan to discharge in: 48 Hours - Advance Directives Does patient have a Living Will: No Does patient have a Durable POA for Healthcare: No - Code Status/Comfort Care Code Status Assessed: Yes Code Status: Full Code Physician Review: Patient Assessed, Agree with Above Assessment and Plan Critical Care: No
[2021-10-07] MEDS ORDERED: ASPIRIN EC 81 MG TAB PO ONE (09:52)
[2021-10-07] MEDS ORDERED: ASPIRIN EC 81 MG TAB PO SCH (10:00)
--- NOTE | 2021-10-07 10:20 | EKG ---
Test Date: 2021-10-07 Test Time: 03:28:11 [employer]erglass Luggage Molder: ADRIANA MEASUREMENT RESULTS: Intervals: Rate: 153 MA: QRSD: 84 QT: 294 QTc: 469 [place]: P: MA: QRS: 27 T: 140 INTERPRETIVE STATEMENTS: Atrial fibrillation with rapid ventricular response ST & T wave abnormality, consider lateral ischemia or digitalis effect Abnormal ECG No previous ECG available for comparison Electronically Signed On 10-07-21 10:19:53 CDT by William French
--- NOTE | 2021-10-07 11:53 | CON ---
Date of Consultation: 10/07/2021 The patient was admitted by the emergency room physician. Reason For Consultation: Atrial fibrillation. History Of Present Illness: Ms. Parra is a patient, who has had a previous history of atrial fibrill ation approximately 5 years ago, at which time, she was taking metoprolol and aspirin. She came off those medicines because she has not had any recurrence. She does have a history of asthma for which she takes some inhalers for. Otherwise, no previous cardiac history. Came in with rapid ventricular response requiring cardioversion. She is back in sinus rhythm right now, on metoprolol and Lovenox. She denied nausea, vomiting, diaphoresis, PND, orthopnea, pedal edema, fever, chills, or syncope. Did have some chest pain with her atrial fibrillation 5 years ago. She had a normal echo and a elaine l stress test. She follows up with Dr. Dsouza in [place]. Past Medical History: Includes asthma. Allergies: SHE IS ALLERGIC TO PENTAZOCINE. Medications: At home include Singulair. Review of Systems: Negative. Social History: Negative. Family History: Noncontributory. Physical Examination: Vital Signs: Stable, sinus rhythm, afebrile. HEENT: Negative. Neck: Supple with no bruit. Chest: Clear to auscultation and percussion. Cardiac: Revealed a regular rhythm and rate. No murmurs, gallops, or rubs. Abdomen: Obese, but benign. Extremities: Revealed no clubbing, cyanosis, or edema. Diagnostic Data: Except for the atrial fibrillation is normal. Impression And Plan: Recurrent atrial fibrillation. I would send the patient home on metoprolol and aspirin. Echocardiogram is pending. We will follow her as an outpatient. If her echocardiogram is abnormal, we probably should consider Eliquis or Xarelto. I will discuss the case further with [facility] physician, but again the patient can go on metoprolol and aspirin after the echo and I will see her in the office in the near future or she can follow up with Dr. Dsouza. ISAIAS/MIS Voice ID: [id number] Report ID: [id number]
[2021-10-07] MEDS ORDERED: POTASSIUM CL SA 10 MEQ TAB PO ONE ×2 (13:00→13:02)
--- NOTE | 2021-10-07 15:11 | RAD REPORT ---
EXAM DESCRIPTION: RAD - Chest Single View - 10/07/2021 3:55 am CLINICAL HISTORY: The patient is 66 years old and is Female; CHEST PAIN TECHNIQUE: Frontal view of the chest. COMPARISON: No relevant prior studies available. FINDINGS: LUNGS: Unremarkable. No consolidation. PLEURAL SPACE: Unremarkable. No pneumothorax. HEART: Unremarkable. No cardiomegaly. MEDIASTINUM: Unremarkable. BONES/JOINTS: Unremarkable. UPPER ABDOMEN: Unremarkable as visualized. IMPRESSION: No acute cardiopulmonary process. Electronically signed by: Anita Wood MD 10/07/2021 4:59 AM CDT Due to temporary technical issues with the PACS/Fluency reporting system, reports are being signed by the in house radiologists without review as a courtesy to insure prompt reporting. The interpreting radiologist is fully responsible for the content of the report.
--- NOTE | 2021-10-07 15:32 | P.DS ---
Admission Date: 10/07/21 Discharge Date: 10/07/21 Disposition: ROUTINE DISCHARGE Discharge Condition: FAIR Reason for Admission: Nausea and vomiting. - Problems (1) Atrial fibrillation with RVR Status: Acute (2) Encounter for cardioversion procedure Status: Acute Brief History of Present Illness: Patient is a 66-year-old female with a past medical history significant for obesity, paroxysmal atrial fibrillation who presents with complaint of nausea and vomiting. Patient reported that she woke up around 1:15 AM not feeling good. She had an episode of vomiting x1. Patient decided to check her pulse rate using a pulse oximeter because she felt she was in atrial fibrillation and patient noted that her heart rate was fluctuating. She also reported palpitations and chest tightness. She decided to present to the hospital for medical evaluation. Patient noted to be in rapid atrial fibrillation in the ED which did not respond to multiple doses of IV metoprolol. According to the ED provider patient systolic blood pressure dropped to the 90s and she was electric cardioverted successfully to sinus rhythm. Patient was then hospitalized for further management. Hospital Course: Patient placed under observation on the medical floor and hydrated with IV normal saline. Hypokalemia was corrected with potassium supplement. Patient was seen and evaluated by cardiology-Dr. French who recommended echocardiogram and discharged to follow-up with him in the office. Dr. French recommended aspirin and metoprolol. Patient heart rate and blood pressure were stable after admission. She also became asymptomatic. Patient is discharged per cardiology recommendation and informed to follow-up with Dr. French within 1 week. Vital Signs/Physical Exam: Temp Pulse Resp BP Pulse Ox 64 17 107/58 L 98 10/07/21 11:26 10/07/21 11:26 10/07/21 11:26 10/07/21 11:26 General: Alert, In no apparent distress, Oriented x3 HEENT: Mucous membr. moist/pink Neck: JVD not distended Respiratory: Clear to auscultation bilaterally, Normal air movement Cardiovascular: No edema, Regular rate/rhythm, Normal S1 S2, No murmurs Capillary refill: <2 Seconds Gastrointestinal: Normal bowel sounds, Soft and benign, Non-distended, No tenderness Musculoskeletal: No swelling, No warmth Integumentary: No rashes, No cyanosis Neurological: Normal speech, Normal strength at 5/5 x4 extr, Cranial nerves 3-12 intact Laboratory Data at Discharge: WBC 12.70 K/uL (4.3-10.9) H 10/07/21 03:43 Hgb 13.0 g/dL (12.0-15.0) 10/07/21 03:43 Hct 39.2 % (36.0-45.0) 10/07/21 03:43 Plt Count 448 K/uL (152-406) H 10/07/21 03:43 Sodium 141 mmol/L (136-145) 10/07/21 03:43 Potassium 3.1 mmol/L (3.5-5.1) L 10/07/21 03:43 BUN 25 mg/dL (7-18) H 10/07/21 03:43 Creatinine 0.78 mg/dL (0.55-1.3) 10/07/21 03:43 Glucose 107 mg/dL (74-106) H 10/07/21 03:43 Home Medications: Aspirin [Aspirin EC 81 MG] 81 mg PO DAILY #30 tab 10/07/21 Metoprolol Tartrate 25 mg PO BID #60 tab 10/07/21 New Medications: Aspirin [Aspirin EC 81 MG] 81 mg PO DAILY #30 tab Metoprolol Tartrate 25 mg PO BID #60 tab Diet: AHA Activity: Ad manpreet Followup: Kory Mahan MD [Primary Care Provider] - William French MD [ACTIVE - CAN ADMIT] - 1 Week
[2021-10-07 17:18] VITALS: TEMP 98.1
[2021-10-07 17:39] VITALS: BP 92/54; O2SAT 100
[2021-10-07] MEDS ORDERED: ENOXAPARIN 40 MG/0.4 ML SQ SCH (21:00)
--- NOTE | 2021-10-08 08:16 | EKG ---
Test Date: 2021-10-07 Test Time: 06:09:51 [employer]: ZANDRA MEASUREMENT RESULTS: Intervals: Rate: 77 NE: 152 QRSD: 88 QT: 386 QTc: 436 [place]: P: 66 NE: 152 QRS: 11 T: 53 INTERPRETIVE STATEMENTS: Normal sinus rhythm Normal ECG Compared to ECG 10/07/2021 03:28:11 Atrial fibrillation no longer present ST (T wave) deviation no longer present Possible ischemia no longer present Electronically Signed On 10-08-21 08:12:32 CDT by William French
--- NOTE | 2021-10-08 09:47 | ECHO ---
HEIGHT: 5 ft 4 in WEIGHT: 195 lb 0 oz DATE OF STUDY: 10/07/[address]: Alesha Gomez 2-DIMENSIONAL: YES M.MODE: YES DOPPLER: YES COLOR FLOW: YES TDS: PORTABLE: YES DEFINITY: BUBBLE STUDY: DIAGNOSIS: ATRIAL FIBRILLATION CARDIAC HISTORY: CATHERIZATION: NO SURGERY: NO PROSTHETIC VALVE: NO PACEMAKER: NO MEASUREMENTS (cm) DIASTOLIC (NORMALS) SYSTOLIC (NORMALS) IVSd 1.0 (0.6-1.2) LA Diam 2.1 (1.9-4.0) LVEF % LVIDd 4.2 (3.5-5.7) LVIDs 3.5 (2.0-3.5) %FS % LVPWd 1.3 (0.6-1.2) Ao Diam 2.3 (2.0-3.7) 2 DIMENSIONAL ASSESSMENT: RIGHT ATRIUM: NORMAL LEFT ATRIUM: NORMAL RIGHT VENTRICLE: NORMAL LEFT VENTRICLE: NORMAL TRICUSPID VALVE: NORMAL MITRAL VALVE: NORMAL PULMONIC VALVE: NORMAL AORTIC VALVE: NORMAL PERICARDIAL EFFUSION: NONE AORTIC ROOT: NORMAL LEFT VENTRICULAR WALL MOTION: NORMAL DOPPLER/COLOR FLOW: NORMAL COMMENTS: NORMAL LEFT VENTRICULAR SIZE AND FUNTION. PAROXYMAL ATRIAL FIBRILLATION. NO EFFUSION. TECHNOLOGIST: LUCERO ANGELES
== END 2021-10-07 16:36 | disposition home or self-care (01) ==
LOC: ER 03:05 → ERHOLD 08:38
PROVIDERS: ADMIT Internal Medicine; ATTEND Internal Medicine
DX: I48.0 Paroxysmal atrial fibrillation (principal); E87.6 Hypokalemia; I95.9 Hypotension, unspecified; J45.909 Unspecified asthma, uncomplicated; N18.2 Chronic kidney disease, stage 2 (mild); R11.2 Nausea with vomiting, unspecified; D72.829 Elevated white blood cell count, unspecified; E66.9 Obesity, unspecified; Z68.33 Body mass index [BMI] 33.0-33.9, adult; Z71.3 Dietary counseling and surveillance; Z71.82 Exercise counseling; Z88.5 Allergy status to narcotic agent; Z88.1 Allergy status to other antibiotic agents; Z20.822 Contact with and (suspected) exposure to COVID-19
CPT/HCPCS: 36415; 71045; 80048; 84484; 85025; 87811; 92960; 93005; 93306; 96361; 96372; 96374; 96375; 99285; G0378; J1650; J2250; J2405; J3010; J7030; J7040